=== PATIENT | male | born 1960 | race Caucasian/White ===

== ENCOUNTER → 2019-01-27 | Outpatient (REF) | payer OTHER | LOC: M LAB REF 14:30 | PROVIDERS: ATTEND Internal Medicine Endocrinology, Diabetes & Metabolism | DX: E04.1 Nontoxic single thyroid nodule (principal) ==

== ENCOUNTER → 2019-08-11 | Outpatient (REF) | payer BC | LOC: M LAB REF 12:17 | PROVIDERS: ATTEND Internal Medicine Endocrinology, Diabetes & Metabolism | DX: E04.1 Nontoxic single thyroid nodule (principal) ==